=== PATIENT | female | born 1960 | race Two or more races ===

== ENCOUNTER 2024-12-30 15:38 | Inpatient (IN) | payer OTHER ==
[~2024-12-30] VITALS: Ht 165.1 cm; Wt 72.6 kg
--- NOTE | 2024-12-30 16:17 | NUR ---
PACIENTE ALERTA Y ORIENTADA X 3. REFIERE SER PACIENTE DE Y CANDELARIA GASTRO QUIEN LE REFIRIO PASAR POR ER POR OBSTRUCCION REFLEJADA EN ESTUDIO REALIZADO EL Y DESDE EL SABADO PRESENTA DOLOR ABDOMINAL.
[2024-12-30] MEDS ORDERED: PRILOSEC OTC20 MG (16:19)
[2024-12-30] MEDS ORDERED: SINGULAIR10 MG PO (16:20)
[2024-12-30] MEDS ORDERED: SYNTHROID50 MCG PO (16:20)
[2024-12-30] MEDS ORDERED: 0.9 % SODIUM CHLORIDE 1,000 ML IV SCH ×2 (17:00→23:45)
[2024-12-30 17:43] LABS: HEMATOCRIT 38.4 % (36.0-45.00); HEMOGLOBIN 12.9 g/dL (12.0-15.00); MEAN CELL VOLUME 89.3 fL (80.00-100.00); MEAN CORPUSCULAR HGB CONC 33.6 g/dl (32.0-36.0); PLATELET COUNT 302 K/uL (150-450); RED CELL DISTRIBUTION WIDTH 15.8 % (11.5-14.5)
--- NOTE | 2024-12-30 17:54 | NUR ---
SE ORIENTA A PACIENTE SOBRE TRATAMIENTO MEDICO, REFIERE ENTENDER. SE COLECTAN MUESTRAS DE LABORATORIO Y SE CANALIZA A PACIENTE BAJO MEDIDAS ASEPTICAS. SE NOTIFICA X-RAY.
[2024-12-30 18:03] LABS: INR 1.03; PARTIAL THROMBOPLASTIN TIME 29.1 SECONDS (22.0-34.0); PROTHROMBIN TIME 11.2 SECONDS (9.0-11.5)
[2024-12-30 18:06] LABS: ALBUMIN 3.7 gm/dL (3.4-5.0); BILIRUBIN TOTAL 0.82 mg/dL (0.3-1.2); CALCIUM 9.9 mg/dL (8.5-10.1); CREATININE SERUM 0.83 mg/dL (0.55-1.02); GFR 68.99; GLOBULINA 4.5 G/DL (2.4-3.5); POTASSIUM 3.4 mEq/L (3.5-5.1); TOTAL PROTEIN 8.2 gm/dL (6.4-8.2)
[2024-12-30 18:23] LABS: URINE APPEARANCE Clear; URINE BILIRRUBIN Negative (NEGATIVE); URINE BLOOD Negative; URINE COLOR Yellow; URINE GLUCOSE Negative (NEGATIVE); URINE KETONE Trace (NEGATIVE); URINE LEUKOCYTE Small; URINE NITRATE Negative; URINE PROTEIN Negative (NEGATIVE); URINE UROBILINOGEN 0.2 E.U./dl
[2024-12-30 18:24] LABS: URINE BACTERIA 906.8 uL (0.0-1933); URINE EPITHELIAL CELLS 29.5 uL (0.0-38.8); URINE RBC 2.6 uL (0.0-20.8); URINE WBC 34.1 uL (0.0-23.2)
[2024-12-30] MEDS ORDERED: PIPERACILLIN/TAZOBACTAM SODIUM 3.375 GM VIAL IV ONE ×2 (23:15→23:53)
[2024-12-30] MEDS ORDERED: ONDANSETRON HCL 4 MG in 0.9 % SODIUM CHLORIDE 50 ML IV PRN (23:45)
[2024-12-30] MEDS ORDERED: ACETAMINOPHEN 500 MG GEL..CAP PO PRN (23:45)
[2024-12-31] MEDS ORDERED: PIPERACILLIN/TAZOBACTAM SODIUM 3.375 GM in DEXTROSE 5 % IN WATER 100 ML IV SCH
[2024-12-31] MEDS ORDERED: MORPHINE SULFATE 4 MG/ML VIAL IV PRN (02:45)
[2024-12-31 02:53] LABS: INR 1.05; PARTIAL THROMBOPLASTIN TIME 25.2 SECONDS (22.0-34.0); PROTHROMBIN TIME 11.4 SECONDS (9.0-11.5)
[2024-12-31] MEDS ORDERED: LEVOTHYROXINE SODIUM 50 MCG TABLET PO SCH (06:00)
[2024-12-31 06:23] VITALS: BP 100/63
[2024-12-31] MEDS ORDERED: FAMOTIDINE/PF 20 MG in 0.9 % SODIUM CHLORIDE 8 ML IV PUSH SCH (09:00)
[2024-12-31] MEDS ORDERED: ENOXAPARIN SODIUM 40 MG/0.4 ML SYRINGE SUBCUTANEO SCH (09:00)
[2024-12-31 09:51] VITALS: BP 89/57; O2SAT 100
[2024-12-31 11:56] LABS: HEMATOCRIT 35.8 % (36.0-45.00); HEMOGLOBIN 11.8 g/dL (12.0-15.00); MEAN CELL VOLUME 89.4 fL (80.00-100.00); MEAN CORPUSCULAR HEMOGLOBIN 29.5 pg (27.00-32.0); PLATELET COUNT 270 K/uL (150-450); RED CELL DISTRIBUTION WIDTH 15.5 % (11.5-14.5)
[2024-12-31 13:54] LABS: CALCIUM 9.2 mg/dL (8.5-10.1); CREATININE SERUM 0.36 mg/dL (0.55-1.02); GFR 180.9; MAGNESIUM 2.1 mg/dL (1.8-2.4); PHOSPHOROUS 3.1 mg/dL (2.5-4.9); POTASSIUM 3.91 mEq/L (3.5-5.1)
[2024-12-31] MEDS ORDERED: DIPHENHYDRAMINE HCL 50 MG/ML VIAL 1ML IV NR (14:30)
[2024-12-31 16:41] VITALS: BP 108/65; O2SAT 97
[2024-12-31] MEDS ORDERED: MONTELUKAST SODIUM 10 MG TABLET PO SCH (17:00)
[2024-12-31] MEDS ORDERED: METRONIDAZOLE/SODIUM CHLORIDE 100 ML IV SCH (17:00)
[2024-12-31] MEDS ORDERED: MORPHINE SULFATE 4 MG/ML CARTRIDGE IV PRN (19:15)
[2024-12-31] MEDS ORDERED: CEFEPIME HCL 2,000 MG VIAL IV SCH (21:00)
[2025-01-01 00:14] VITALS: BP 98/65
[2025-01-01 08:00] VITALS: BP 104/53; O2SAT 97
[2025-01-01 10:39] LABS: HEMATOCRIT 34.8 % (36.0-45.00); HEMOGLOBIN 11.9 g/dL (12.0-15.00); MEAN CELL VOLUME 89.4 fL (80.00-100.00); MEAN CORPUSCULAR HEMOGLOBIN 30.6 pg (27.00-32.0); MEAN CORPUSCULAR HGB CONC 34.3 g/dl (32.0-36.0); PLATELET COUNT 271 K/uL (150-450); RED CELL DISTRIBUTION WIDTH 15.4 % (11.5-14.5)
[2025-01-01 10:54] LABS: ALBUMIN 3.4 gm/dL (3.4-5.0); BILIRUBIN TOTAL 0.82 mg/dL (0.3-1.2); CALCIUM 8.9 mg/dL (8.5-10.1); CREATININE SERUM 0.47 mg/dL (0.55-1.02); GFR 132.99; GLOBULINA 3.5 G/DL (2.4-3.5); MAGNESIUM 1.8 mg/dL (1.8-2.4); PHOSPHOROUS 2.6 mg/dL (2.5-4.9); POTASSIUM 4.18 mEq/L (3.5-5.1); TOTAL PROTEIN 6.9 gm/dL (6.4-8.2)
[2025-01-01 11:32] LABS: C-REACTIVE PROTEIN 7.36 MG/DL (0.00-0.29)
[2025-01-01 15:47] LABS: CALCIUM 9.1 mg/dL (8.5-10.1); CHOL HDL RATIO 1.9 (0-5.0); CREATININE SERUM 0.53 mg/dL (0.55-1.02); GFR 115.77; POTASSIUM 3.57 mEq/L (3.5-5.1)
[2025-01-01] MEDS ORDERED: MIDAZOLAM HCL 2 MG/2 ML VIAL IV PUSH ONE (16:15)
[2025-01-01] MEDS ORDERED: fentaNYL CITRATE 50 MCG/ML AMPUL IV PUSH ONE (16:30)
[2025-01-01] MEDS ORDERED: AMINO ACIDS 4.25 %/DEXTROSE 5% 1,000 ML PERIFERAL SCH (17:00)
[2025-01-01 17:53] VITALS: BP 127/81; O2SAT 97
[2025-01-02 02:02] VITALS: BP 120/76; O2SAT 94
[2025-01-02] MEDS ORDERED: 0.9 % SODIUM CHLORIDE 10 ML VIAL IJ ONE (08:36)
[2025-01-02 18:14] VITALS: BP 127/73; O2SAT 98
[2025-01-03 02:16] VITALS: BP 136/84; O2SAT 96
[2025-01-03 06:38] LABS: HEMATOCRIT 35.5 % (36.0-45.00); HEMOGLOBIN 12.1 g/dL (12.0-15.00); MEAN CELL VOLUME 89.1 fL (80.00-100.00); MEAN CORPUSCULAR HEMOGLOBIN 30.4 pg (27.00-32.0); MEAN CORPUSCULAR HGB CONC 34.1 g/dl (32.0-36.0); PLATELET COUNT 261 K/uL (150-450); RED BLOOD COUNT 3.98 M/uL (4.00-6.00); RED CELL DISTRIBUTION WIDTH 15.1 % (11.5-14.5)
[2025-01-03 07:24] LABS: ALBUMIN 2.6 gm/dL (3.4-5.0); BILIRUBIN TOTAL 0.53 mg/dL (0.3-1.2); CALCIUM 7.3 mg/dL (8.5-10.1); GLOBULINA 3.1 G/DL (2.4-3.5); MAGNESIUM 1.6 mg/dL (1.8-2.4); TOTAL PROTEIN 5.7 gm/dL (6.4-8.2)
[2025-01-03 08:24] VITALS: BP 115/75
[2025-01-03 08:41] LABS: GFR 378.22
[2025-01-03 08:43] LABS: POTASSIUM 2.63 mEq/L (3.5-5.1)
[2025-01-03] MEDS ORDERED: POTASSIUM CHLORIDE IN WATER 40 MEQ/100 ML PIGGYBAG IV SCH (08:44)
[2025-01-03 08:45] LABS: PHOSPHOROUS 1.3 mg/dL (2.5-4.9)
[2025-01-03 08:55] LABS: CREATININE SERUM 0.19 mg/dL (0.55-1.02)
[2025-01-03] MEDS ORDERED: SODIUM CL 0.9% 500 ML IV.SOLN. ONE (10:01)
[2025-01-03] MEDS ORDERED: POTASSIUM PHOS,M-BASIC-D-BASIC 18 MM in 0.9 % SODIUM CHLORIDE 500 ML IV SCH (12:00)
[2025-01-03] MEDS ORDERED: METHYLPREDNISOLONE SOD SUCC 40 MG VIAL IV SCH ×2 (13:26→21:00)
[2025-01-03 16:46] VITALS: BP 121/83; O2SAT 97
[2025-01-03] MEDS ORDERED: MEROPENEM 500 MG/VIAL VIAL IV SCH (18:00)
[2025-01-03] MEDS ORDERED: MORPHINE SULFATE 4 MG/ML CARTRIDGE IV PRN (21:00)
[2025-01-04 00:41] VITALS: BP 103/66; O2SAT 94
[2025-01-04 08:42] VITALS: BP 127/93
[2025-01-04 18:30] VITALS: BP 137/74; O2SAT 96
[2025-01-05 01:02] VITALS: BP 123/75; O2SAT 98
[2025-01-05 08:19] VITALS: BP 146/84
[2025-01-05 18:47] VITALS: BP 131/76; O2SAT 95
[2025-01-06 01:08] VITALS: BP 140/72; O2SAT 96
[2025-01-06 08:20] VITALS: BP 139/64
[2025-01-06] MEDS ORDERED: BUDESONIDE 0.5 MG/2 ML AMPUL.NEB IH SCH (09:13)
[2025-01-06] MEDS ORDERED: LEVALBUTEROL HCL 1.25 MG/3 ML SOLUTION IH SCH (09:14)
[2025-01-06] MEDS ORDERED: DIPHENHYDRAMINE HCL 50 MG/ML VIAL 1ML IM STA (12:44)
[2025-01-06 12:57] LABS: HEMATOCRIT 33.4 % (34.1-44.9); HEMOGLOBIN 11.5 g/dL (11.2-15.7); LYMPH # 0.44 (1.18-3.74); LYMPH % 9.8 % (19.3-53.1); MEAN CORPUSCULAR HEMOGLOBIN 29.9 pg (25.6-32.2); MONO # 0.17 (0.24-0.82); MONO % 3.8 % (4.7-12.5); NEUT # 3.83 (1.56-6.13); NEUT % 85.7 % (34.0-71.1); PLATELET COUNT 262 K/uL (163-369); RED BLOOD COUNT 3.84 M/uL (3.93-5.22); RED CELL DISTRIBUTION WIDTH 14.2 % (11.6-14.4)
[2025-01-06 13:38] LABS: CALCIUM 9.2 mg/dL (8.5-10.1); CREATININE SERUM 0.41 mg/dL (0.55-1.02); GFR 155.69; MAGNESIUM 1.7 mg/dL (1.8-2.4); POTASSIUM 3.16 mEq/L (3.5-5.1)
[2025-01-06 14:08] LABS: PHOSPHOROUS 1.8 mg/dL (2.5-4.9)
[2025-01-06 16:05] LABS: INR 1.15; PARTIAL THROMBOPLASTIN TIME 27.2 SECONDS (22.0-34.0); PROTHROMBIN TIME 12.4 SECONDS (9.0-11.5)
[2025-01-06 16:11] LABS: BILIRUBIN TOTAL 0.37 mg/dL (0.3-1.2); BILIRUBIN,CONJUGATED 0.13 mg/dL (0.0-0.2); BILIRUBIN,UNCONJUGATED 0.24 mg/dL (0.0-0.6); CALCIUM 9.3 mg/dL (8.5-10.1); CHOL HDL RATIO 2.1 (0-5.0); CREATININE SERUM 0.42 mg/dL (0.55-1.02); GFR 151.42; MAGNESIUM 1.9 mg/dL (1.8-2.4); POTASSIUM 3.61 mEq/L (3.5-5.1); TOTAL PROTEIN 6.2 gm/dL (6.4-8.2)
[2025-01-06] MEDS ORDERED: METHYLPREDNISOLONE SOD SUCC 40 MG VIAL IV SCH (17:00)
[2025-01-06 17:01] VITALS: BP 178/78
[2025-01-06] MEDS ORDERED: LEVALBUTEROL HCL 0.63 MG/3 ML SOLUTION IH SCH (20:00)
[2025-01-07 02:25] VITALS: BP 152/81; O2SAT 96
[2025-01-07 08:10] VITALS: BP 130/60
[2025-01-07] MEDS ORDERED: METHYLPREDNISOLONE SOD SUCC 40 MG VIAL IV SCH (09:00)
[2025-01-07 10:08] LABS: UREA CLEARANCE 57.3 ML/MIN
[2025-01-07 17:06] VITALS: BP 131/75
[2025-01-08 01:33] VITALS: BP 141/79; O2SAT 97
[2025-01-08 08:19] VITALS: BP 135/75; O2SAT 97
[2025-01-08 18:19] VITALS: BP 111/68; O2SAT 98
[2025-01-09 01:22] VITALS: BP 130/78; O2SAT 97
[2025-01-09 09:16] VITALS: BP 150/87; O2SAT 98
== END 2025-01-09 11:04 | disposition home or self-care (01) | DRG 391 ==
LOC: ER 15:38 → MEDJ 23:57 → ER 12-31 02:08 → MEDJ 12-31 02:08 → EDBD 12-31 02:08 → MEDJ 01-09 11:04
PROVIDERS: General Practice; Internal Medicine Infectious Disease; ADMIT Internal Medicine; ATTEND Internal Medicine
PROC: BW21YZZ Computerized Tomography (CT Scan) of Abdomen and Pelvis using Other Contrast (ICD-10-PCS; 2024-12-30)
PROC: 0W9G30Z Drainage of Peritoneal Cavity with Drainage Device, Percutaneous Approach (ICD-10-PCS; principal; 2025-01-01)
PROC: 02HV33Z Insertion of Infusion Device into Superior Vena Cava, Percutaneous Approach (ICD-10-PCS; 2025-01-01)
PROC: 3E0436Z Introduction of Nutritional Substance into Central Vein, Percutaneous Approach (ICD-10-PCS; 2025-01-01)
PROC: BW21YZZ Computerized Tomography (CT Scan) of Abdomen and Pelvis using Other Contrast (ICD-10-PCS; 2025-01-06)
PROC: 3E0F7GC Introduction of Other Therapeutic Substance into Respiratory Tract, Via Natural or Artificial Opening (ICD-10-PCS; 2025-01-07)
DX: K57.20 Diverticulitis of large intestine with perforation and abscess without bleeding (principal); K65.1 Peritoneal abscess; K63.2 Fistula of intestine; J45.901 Unspecified asthma with (acute) exacerbation; J44.89 Other specified chronic obstructive pulmonary disease; E86.0 Dehydration; E87.6 Hypokalemia; E03.9 Hypothyroidism, unspecified; B96.20 Unspecified Escherichia coli [E. coli] as the cause of diseases classified elsewhere; B95.4 Other streptococcus as the cause of diseases classified elsewhere; B96.89 Other specified bacterial agents as the cause of diseases classified elsewhere

== ENCOUNTER → 2025-01-28 09:46 | Outpatient (CLI) | payer OTHER ==
[~2025-01-28 09:46] MED LIST: PRILOSEC OTC20 MG; SINGULAIR10 MG PO; SYNTHROID50 MCG PO
[2025-01-28 12:58] LABS: CREATININE SERUM 0.64 mg/dL (0.55-1.02); GFR 93.13
== END | disposition home or self-care (01) ==
LOC: LAB 09:46
PROVIDERS: ATTEND Radiology Diagnostic Radiology
DX: R10.30 Lower abdominal pain, unspecified (principal)